=== PATIENT | male | born 1985 | race African-American/Black ===

== ENCOUNTER 2017-06-12 10:44 | Emergency (ER) | payer SELFPAY ==
[~2017-06-12] VITALS: Ht 180.3 cm; Wt 86.0 kg
[~2017-06-12 10:44] MED LIST: Z.0.NO CURRENT MEDS
[2017-06-12 10:45] VITALS: BP 168/100; PULSE 76; RESP 20; TEMP 98.4; O2SAT 100
[2017-06-12] MEDS ORDERED: LIDOCAINE HCL 1% 50 ML VIAL IM ONE (11:00)
[2017-06-12] MEDS ORDERED: AZITHROMYCIN PWD FOR SUSP 1 GM PACKET PO ONE (11:00)
[2017-06-12] MEDS ORDERED: cefTRIAXone 250 MG VIAL IM ONE (11:00)
--- NOTE | 2017-06-12 11:06 | PD ---
HPI Chief Complaint: Complaint Time Seen by Provider: 11:02 Travel History International Travel<30 days: No Contact w/Intl Traveler<30days: No Traveled to known affect area: No History of Present Illness HPI 32-year-old male presents emergency Department with complaint of burning on urination and penile drainage 3 weeks. Denies fever, vomiting. Denies abdominal pain. Reports unprotected sexual intercourse. Unknown exposure to STI or STD. Symptoms are mild in severity. Has not taken any medications or treatments to alleviate his symptoms. Has no medical complaints. No known allergies. No lymphadenopathy factors or associated signs and symptoms. PFSH Social History Alcohol Use: Yes (BEER DAILY) Tobacco Use: Yes (ONE PACK DAILY X 3 EYARS) Substance Use: No Allergies-Medications (Allergen,Severity, Reaction): Coded Allergies: No Known Allergies (Verified , 11/26/12) Reported Meds & Prescriptions Reported Meds & Active Scripts Active Keflex (Cephalexin) 500 Mg Cap 500 Mg PO Q12H 7 Days Reported No Current Meds (Miscellaneous Medication) Misc Review of Systems Except as stated in HPI: all other systems reviewed are Neg Physical Exam Narrative GENERAL: Well-nourished, well-developed male patient, in no acute distress SKIN: Warm and dry. HEAD: Atraumatic. Normocephalic. EYES: Pupils equal and round. ENT: Mucosa pink and moist. NECK: Trachea midline. No lymphadenopathy. CARDIOVASCULAR: Regular rate. RESPIRATORY: No accessory muscle use. GASTROINTESTINAL: Abdomen soft and nondisteneded; with tenderness at the umbilicus on palpation. Hepatic and splenic margins not palpable. Bowel sounds are active 4 quadrants. No bladder distention or tenderness on palpation. GENITOURINARY: Exam done in the presence of a nurse. Circumcised. Testes descended bilaterally without evidence of rotation. No lesions or erythema. No acute white urethral discharge. MUSCULOSKELETAL: No obvious deformities. No clubbing. No cyanosis. No edema. NEUROLOGICAL: Awake and alert. Oriented 3. No obvious cranial nerve deficits. Motor grossly within normal limits. Normal speech. Moves all extremities. 5/5 strength to all extremities. PSYCHIATRIC: Appropriate mood and affect; insight and judgment normal. Data Data Last Documented VS Vital Signs Date Time Temp Pulse Resp B/P (MAP) Pulse Ox O2 Delivery O2 Flow Rate FiO2 06/12/17 12:03 06/12/17 10:45 98.4 76 20 100 Room Air Orders Orders Gc And Chlamydia Pcr (06/12/17 10:58) Urinalysis - C+S If Indicated (06/12/17 10:58) Azithromycin Powd Pack (Zithromax Powd P (06/12/17 11:00) Ceftriaxone Inj (Rocephin Inj) (06/12/17 11:00) Lidocaine 1% Inj (50 Ml) (Xylocaine 1% I (06/12/17 11:00) Urine Culture (06/12/17 11:20) Labs Laboratory Tests Test 06/12/17 11:20 Urine Color YELLOW Urine Turbidity HAZY Urine pH 6.5 Urine Specific [place] 1.022 Urine Protein TRACE mg/dL Urine Glucose (UA) NEG mg/dL Urine Ketones NEG mg/dL Urine Occult Blood MOD Urine Nitrite NEG Urine Bilirubin NEG Urine Urobilinogen LESS THAN 2.0 MG/DL Urine Leukocyte Esterase LARGE Urine RBC 90 /hpf Urine WBC /hpf Urine Squamous Epithelial Cells 1 /hpf Urine Bacteria OCC /hpf Microscopic Urinalysis Comment CULTURE INDICATED Chlamydia trachomatis DNA (PCR) NOT DETECTED Neisseria gonorrhoeae DNA (PCR) DETECTED MDM Medical Decision Making Medical Screen Exam Complete: Yes Emergency Medical Condition: Yes Medical Record Reviewed: Yes Differential Diagnosis Chlamydia, gonorrhea, STI, urinary tract infection Narrative Course 32-year-old male with urethritis and dysuria. Patient has milky white drainage from his penis on physical exam. Patient empirically treated with azithromycin and Rocephin. Urinalysis ordered. 1149: Urinalysis with signs of infection. Chlamydia and gonorrhea pending. Instructed patient to follow up with [facility] or [facility] clinic for full STD panel and follow-up. Instructed patient to follow up with primary care provider. Patient verbalizes understanding and agreement with treatment plan. Patient is medically cleared and stable for discharge. Discussed reasons to return to the emergency department. Patient agrees with treatment plan. The patients vital signs are stable and the patient is stable for outpatient follow-up and treatment. Patient discharged home, stable and in no acute distress. Diagnosis Primary Impression: Urethritis Additional Impression: Urinary tract infection Qualified Codes: N39.0 - Urinary tract infection, site not specified Referrals: [facility] Primary Care Physician [facility]. Patient Instructions: Chlamydia (ED), Condom Use (ED), General Instructions, Gonorrhea (ED), Nonspecific Urethritis in Men (ED), Sexually Transmitted Diseases (ED) Departure Forms: Tests/Procedures, Work Release Enter return to work date: Jun 13, 2017 Additional Instructions: Avoid sexual activity until you follow up with her primary care provider Inform all sexual partners within the past 3-6 months that they need to be evaluated and treated Use condoms every time you have sex Follow-up with primary care provider, [facility], or [facility] clinic for full panel of STD testing Return to the emergency department immediately with worsening of symptoms Med/Other Pt SpecificInfo: Prescription(s) given Scripts Cephalexin (Keflex) 500 Mg Cap 500 MG PO Q12H for Infection for 7 Days, CAP 0 Refills Prov: Neida Sanchez 06/12/17 Disposition: 01 DISCHARGE HOME Condition: Stable Neida Sanchez Jun 12, 2017 11:06
[2017-06-12 11:36] LABS: BACTERIA, URINE OCC /hpf; BLOOD, URINE MOD (NEG); COMMENT (UR) CULTURE INDICATED; CULTURE IF INDICATED CULTURE INDICATED; GLUCOSE,URINE NEG (NEG); KETONE, URINE NEG (NEG); NITRITE,URINE NEG (NEG); PH, URINE 6.5 (5.0-8.5); SQUAMOUS EPITHELIAL CELL URINE 1 /hpf (0-5); URINE COLOR YELLOW (YELLW/STRAW)
[2017-06-12] MEDS ORDERED: CEPH-460 PO (11:49)
[2017-06-12 15:05] LABS: CHLAMYDIA PCR NOT DETECTED (NOT DETECT); NEISSERIA PCR DETECTED (NOT DETECT)
== END 2017-06-12 12:04 | disposition home or self-care (01) ==
LOC: NEPK 10:44
DX: N34.2 Other urethritis (principal)
CPT/HCPCS: 81001; 87086; 87491; 87591; 96372; 99284; J0696